=== PATIENT | female | born 1965 | race Two or more races ===

== ENCOUNTER 2018-07-17 10:09 | Outpatient (CLI) | payer OTHER ==
[~2018-07-17 10:09] MED LIST: ALLEGRA ALLERG180 MG; BENADRYL50 MG; ZANTAC300 MG
== END 2018-07-17 17:02 | disposition home or self-care (01) ==
LOC: MAMO-SONO 10:09
DX: Z12.31 Encounter for screening mammogram for malignant neoplasm of breast (principal); N60.11 Diffuse cystic mastopathy of right breast; N60.12 Diffuse cystic mastopathy of left breast

== ENCOUNTER 2020-04-05 08:08 | Outpatient (CLI) | payer OTHER | END 2020-04-05 08:17 | disposition home or self-care (01) | LOC: MAMO-SONO 08:08 | PROVIDERS: ATTEND Specialist | DX: Z12.31 Encounter for screening mammogram for malignant neoplasm of breast (principal); N60.11 Diffuse cystic mastopathy of right breast; N60.12 Diffuse cystic mastopathy of left breast; R10.31 Right lower quadrant pain; R10.32 Left lower quadrant pain; N95.1 Menopausal and female climacteric states ==